=== PATIENT | male | born 1990 | race Asian ===

== ENCOUNTER 2018-12-26 08:48 | Outpatient (CLI) | payer OTHER ==
--- NOTE | 2018-12-27 20:18 | MRI Report ---
Reason: UNSPECIFIED INJURY OF UNSPECIFIED LOWER LEG, INITI Procedure Date: 12/26/2018 Accession Number: [id number] / [id number] Procedure: MRI - Knee RT W/O CPT Code: FULL RESULT: EXAM: RIGHT KNEE MRI WITHOUT CONTRAST EXAM DATE: 12/26/2018 10:31 AM. CLINICAL HISTORY: Right knee pain after basketball related injury. COMPARISON: None. TECHNIQUE: Multiplanar, multisequence T1-weighted and fluid-sensitive sequences of the knee without contrast. Other: None. FINDINGS: Bones and articular cartilage: There is an approximately 4 x 3 mm full-thickness chondral defect, mild subchondral marrow edema, and minimal focal cortical irregularity at the posterior aspect of the medial femoral condyle. There is a 7 x 5 mm full-thickness chondral defect at the posterior superior aspect of the medial femoral condyle. Focal grade III-IV chondromalacia and subchondral marrow edema at the posterior lateral aspect of the medial tibial plateau. Full-thickness articular cartilage fissure at the medial trochlear facet. No patella subluxation. 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 Medial Meniscus: Oblique tear at the lateral aspect of the posterior horn. Lateral Meniscus: The lateral meniscus is intact. Collateral Ligaments: Grade 1 sprain of the proximal anterior aspect of the medial collateral ligament complex. The lateral collateral ligament complex structures are intact. Cruciate Ligaments: Complete tear of the anterior cruciate ligament. Portions of the anterior cruciate ligament are displaced anteriorly and anterolaterally within the anterior aspect of the femoral-tibial joint and the anteromedial aspect of the lateral joint compartment. The posterior cruciate ligament is intact. Tendons: The quadriceps, patellar, semimembranosus, and popliteus tendons are unremarkable. Musculature: No edema or fatty atrophy. Other: Moderate to large sized joint effusion. Small, partially ruptured Barakat's cyst. No loose bodies. The medial and lateral retinacula are intact. The subcutaneous tissues and fat pads are unremarkable. IMPRESSION: 1. Full-thickness chondral defects at the medial femoral condyle. Full-thickness articular cartilage fissure at the medial trochlear facet. 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 2. Oblique tear at the lateral aspect of the posterior horn medial meniscus. 3. Grade 1 sprain of the proximal anterior aspect of the medial collateral ligament complex. 4. Complete tear/rupture of the anterior cruciate ligament. 5. Moderate to large sized joint effusion. 6. Small, partially ruptured Barakat's cyst. [facility]
== END 2018-12-26 08:49 | disposition home or self-care (01) ==
LOC: DI 08:48
PROVIDERS: ATTEND General Practice
DX: S83.411A Sprain of medial collateral ligament of right knee, initial encounter (principal); S83.511A Sprain of anterior cruciate ligament of right knee, initial encounter; S83.241A Other tear of medial meniscus, current injury, right knee, initial encounter; M94.261 Chondromalacia, right knee; M66.0 Rupture of popliteal cyst; M25.461 Effusion, right knee

== ENCOUNTER 2019-11-01 15:26 | Outpatient (CLI) | payer OTHER ==
--- NOTE | 2019-11-01 15:00 | SLEEP CARE CONSULTATION ---
Information from patient questionnaire entered by Tita Hernandez. I have reviewed and concur with the information entered by Tita Hernandez. This document represents the service I personally performed and the decisions made by me, Nilam Samuels MD, [facility]. History of Present Illness Service Date and Time: 11/01/2019 1500 Reason for Visit: New patient Chief Complaint: reports: Unrefreshed sleep, Snoring, Observed pauses in breathing, Fatigue Duration of Symptoms: 3 years Usual bedtime: 10 pm Time it takes to fall asleep: about 30 minutes Snores at night: Yes Observed to quit breathing while asleep: Yes Sleeps alone due to snoring: No Number of times waking at night: 1-2 Reasons for waking at night: reports: Other (waking up for no reason) Toss, Turn, or Twitch while sleeping: Yes Recalls having dreams: No Usually gets out of bed at: 5 am Feels refreshed in the morning: No Morning headache: Yes (sometimes) Sleepy or fatigued during the day: Yes Ever fallen asleep while driving: No Takes day naps: Yes Dreams during day naps: No Prior sleep studies: No Additional HPI information: I had the pleasure of seeing Mr. Brito today regarding the possibility of him having a sleep disorder. As you know, he is a 30 year old gentleman who complains of loud snore, unrefreshed sleep, and his sees him quit breathing. The patient tells me that he normally goes to bed around 10 pm, and it takes him approximately 30 minutes to fall asleep. His can still sleep in the same bed. He can recall waking up on the average of 1-2 times during the night. Most of the time he wakes up because of no apparent reason. He has awakened occasionally because of his own snoring, choking, and having to gasp for air. There is a lot of tossing and turning in his sleep. No somniloquy (sleep talking) or somnambulism (sleep walking). Generally he can recall having dreams. In the morning he usually gets up out of the bed around 5:30 a.m.(9 10 am on weekends) not feeling refreshed nor rested. He occasionally has a morning headache lasting all morning. During the day he complains of feeling sleepy and fatigued. His score on [place] Sleepiness Scale is 13 out of 24. He has never fallen asleep while driving nor has had any accident due to sleepiness. He usually takes naps during the day. Upon falling asleep during the day he denies having vivid dreams. He is not bothered by restless leg. He reports having impaired concentration during the day. - Parasomnia Symptoms Ever been unable to move upon waking from sleep: No Ever felt weak in the knees when startled or emotional: Yes (sometimes) Bothered by creepy, crawly, restless sensations in legs: No Problems with memory or concentration: Yes Subjective Initial [place] Sleepiness Scale score: 13 Social History The patient's occupation is a active . Patient is and lives in [place]. Have you smoked in the past 12 months: No Alcohol use: Yes Alcohol amount and frequency: 1 drink 2-3 times a week Caffeine use: No Family History Family history of sleep disordered breathing: No Family Hx Sleep Apnea: Father: Snoring Allergies and Home Medications Drug allergies reviewed: Yes Home medication list reviewed: Yes Review of Systems Weight loss over past 5 years: 20 Cardiovascular: denies: high blood pressure, palpitations, chest pain, irregular heart rate or pulse, leg or foot swelling, have to sleep sitting up, other Respiratory: denies: shortness of breath, wheeze, sputum production, chronic cough, other Gastrointestinal: denies: heartburn, difficulty swallowing, nausea, vomitting, diarrhea, abdominal pain, other Urinary: denies: incontinence, frequency, urgency, impotence, other Neurological: denies: headaches, seizure, head trauma, disorientation, speech dysfunction, gait or balance problems, fainting or unconsciousness, other Psychiatric: denies: Attention Deficit Hyperactivity, anxiety, depression, mood disorder, claustrophobia, other Ear/Nose/Throat: denies: nasal congestion, sinus problems, nose bleeds, dry mouth/throat, hoarseness, injury to nose, tonsillectomy, wisdom teeth removed, other Endocrine: denies: thyroid disease, history of goiter, sluggishness, too hot or cold, excessive thirst, increased appetite, increased urination, unexplained weakness, other Musculoskeletal: reports: other (s/p knee surgery) Immunologic: denies: sneezing, rash, itching, allergies to food or environment, other Physical Exam Height: 5 ft 8 in Weight: 180 lb Body Mass Index: 27.3 BMI Classification: Overweight Impression and Plan IMPRESSION: 1. Obstructive Sleep Apnea-Hypopnea Syndrome, as suggested by history of loud and irregular snoring, observed cessation of breath while asleep, unrefreshed sleep, cognitive impairment, and daytime hypersomnolence. Narrow oropharynx and obesity are common predisposing factors for obstructive sleep apnea-hypopnea syndrome. Pathophysiology of sleep-disordered breathing was discussed. I recommend proceeding to polysomnography to confirm the diagnosis and to assess severity. If he has significant sleep disordered breathing, a manual CPAP titration study will also be performed to find the optimal treatment pressure. I informed the patient of what the sleep studies involve and after some discussion, he agreed to proceed. Plan: 1. Schedule polysomnography and possibly a manual CPAP titration study 2. Avoid long distance driving or when feeling sleepy. 3. Avoid alcohol, sedative and muscle relaxant around bedtime. 4. Attempt to lose some weight. 5. Return in 1 to 2 weeks after the study to discuss results and initiate therapy. Follow up with Sleep Care in: 3 months Visit Type: Telehealth Video Patient Location: Home Location of Provider: Office Patient agrees and consents to this telehealth visit type: Yes Patient agrees to have their insurance billed: Yes Provider Statement: I spent 100% of the Telehealth Video Call with the patient with greater than 50% spent counseling the patient and coordination of care.
== END 2019-11-01 15:27 | disposition home or self-care (01) ==
LOC: SC 15:26
PROVIDERS: ATTEND Internal Medicine Pulmonary Disease
DX: R06.83 Snoring (principal); G47.8 Other sleep disorders; R06.81 Apnea, not elsewhere classified; G47.10 Hypersomnia, unspecified; R41.89 Other symptoms and signs involving cognitive functions and awareness; R51 Headache; R53.83 Other fatigue; E66.3 Overweight; Z68.27 Body mass index [BMI] 27.0-27.9, adult

== ENCOUNTER 2019-11-18 13:37 | Outpatient (CLI) | payer OTHER ==
--- NOTE | 2019-11-18 17:35 | MRI Report ---
Reason: RIGHT KNEE PAIN Procedure Date: 11/18/2019 Accession Number: [id number] / [id number] Procedure: MRI - Knee RT W/O CPT Code: Final Report FULL RESULT: EXAM: RIGHT KNEE MRI WITHOUT CONTRAST EXAM DATE: 11/18/2019 02:47 PM. CLINICAL HISTORY: Right knee pain. Previous ACL reconstruction and meniscal repair in February 2019. COMPARISON: KNEE RT MRI W/O 12/26/2018 9:36 AM. TECHNIQUE: Multiplanar, multisequence T1-weighted and fluid-sensitive sequences of the knee without contrast. Other: None. FINDINGS: Bones and articular cartilage: Postoperative changes at the distal femur and proximal tibia from previous ACL reconstruction. Metallic tunnel screw at the proximal tibia. Small marginal osteophytes at the tibial plateau. Tiny patellar osteophytes. No acute fracture or bone lesions. Grade II chondromalacia of the medial femoral condyle. The previously seen focal articular cartilage defect at the posterior aspect of the medial femoral condyle has improved since the prior study. Focal grade II-III chondromalacia of the femoral trochlear groove which is slightly worse than before. Minimal subcortical marrow edema at the inferior margin of the patella. No subluxations. Medial Meniscus: There is a new, vertically oriented, linear T2 hyperintense focus within the posterior outer third of the posterior horn which extends through the superior articular surface. This is suggestive of a new tear. There is also an obliquely oriented T2 hyperintense focus within the inner and middle thirds of the posterior horn suspicious for recurrent tear. Lateral Meniscus: Small focal radial tear at the junction of the anterior horn and body (sagittal image 25). Cruciate Ligaments: The ACL graft is intact. The posterior cruciate ligament is intact. Collateral Ligaments: The medial collateral and lateral collateral ligamentous structures are intact. Tendons: The quadriceps tendon is unremarkable. Postoperative changes of the patellar tendon from the previous ACL reconstruction procedure. The semimembranosus and popliteus tendons are unremarkable. Musculature: No edema or fatty atrophy. Other: No effusion. Tiny popliteal cyst. No loose bodies. The medial and lateral retinacula are intact. The subcutaneous tissues and fat pads are unremarkable. IMPRESSION: 1. Previous ACL reconstruction. The ACL graft is intact. 2. Interval improvement of previously seen focal articular cartilage defect at the posterior aspect of the medial femoral condyle. Focal grade II-III chondromalacia of the femoral trochlear groove which is slightly worse than before. 3. New vertically oriented tear at the posterior, outer third of the posterior horn medial meniscus. Findings suspicious for a recurrent oblique tear at the inner and middle thirds of the posterior horn medial meniscus. 4. New, small radial tear at the junction of the anterior horn and body of the lateral meniscus. [facility]
== END 2019-11-18 13:38 | disposition home or self-care (01) ==
LOC: DI 13:37
PROVIDERS: ATTEND Orthopaedic Surgery
DX: M94.261 Chondromalacia, right knee (principal); S83.241A Other tear of medial meniscus, current injury, right knee, initial encounter; S83.281A Other tear of lateral meniscus, current injury, right knee, initial encounter